=== PATIENT | female | born 1940 | race Caucasian/White ===

== ENCOUNTER → 2016-08-22 | Outpatient (CLI) | payer OTHER ==
[~2016-08-22] MED LIST: AUGMENTIN 875875 MG PO; DETROL LA4 MG PO; DOXYCYCLINE100 M2 PO; FLAGYL500 MG PO; LIALDA1.2 GM PO; LIPITOR40 MG PO; LISINOPRIL10 MG PO; LISINOPRIL5 MG PO; VITAMIN D1000 IU PO
== END | disposition home or self-care (01) ==
LOC: MAMMO 11:30
DX: Z12.31 Encounter for screening mammogram for malignant neoplasm of breast (principal)

== ENCOUNTER → 2017-07-27 | Outpatient (CLI) | payer OTHER | END | disposition home or self-care (01) | LOC: US 09:11 | DX: R10.31 Right lower quadrant pain (principal) ==

== ENCOUNTER → 2017-08-02 | Day surgery (SDC) | payer OTHER ==
[~2017-08-02] VITALS: Ht 149.8 cm; Wt 69.9 kg
[~2017-08-02] MED LIST changes: +MEDROL DOSEPAK4 MG PO
--- NOTE | ~2017-08-02 | O ---
[place], [place] OPERATIVE NOTE NAME: ROB FERREIRA UNIT #: [id number] ROOM: DOCTOR: MARS PRICE MD BIRTHDATE: [birth year] DOS: 08/02/2017 GASTROENDOSCOPIC REPORT INDICATIONS: This is a 77-year-old patient who presented with blood in stool on Lialda, history of ulcerative colitis history. ALLERGIES: SULFA. FAMILY HISTORY: Noncontributory. PAST SURGICAL HISTORY: Hysterectomy. PAST MEDICAL HISTORY: Hypertension, hypercholesterolemia, ulcerative colitis. SOCIAL HISTORY: Nonsmoker, nonalcohol consumer. PROCEDURE: Today's procedure part of investigation is colonoscopy plus biopsy. PREMEDICATION: Versed and Diprivan. SCOPE: Olympus folding colonoscope 10L video. REPORT: After putting the patient in left lateral position and application of lubricant to the scope, the scope was introduced. Thereafter, under direct visualization, I advanced the length of colon without difficulty. Evidence of ulcerative colitis limited to rectosigmoid and left side of the colon was appreciated, photographed, biopsied, and moderate to severe diverticulosis of the sigmoid colon identified. Base of the cecum explored, appendiceal was identified, ileocecal valve was defined. The patient extubated, tolerated the procedure well. IMPRESSION: Rectosigmoid and left-sided colitis, history of ulcerative colitis. The patient is on Lialda 1.2 grams b.i.d. She has been on Flagyl trial as well 500 mg twice a day. PLAN AND DISCUSSION: I am going to give her a trial of Medrol Dosepak, which is going to help her enhancing her healing. DIET: High fiber diet. ACTIVITY: Ad martha. FOLLOWUP: Routinely with you in office, p.r.n. visit with us in [facility]. [place], [place] OPERATIVE NOTE NAME: ROB FERREIRA UNIT #: [id number] ROOM: DOCTOR: MARS PRICE MD BIRTHDATE: [birth year] MARS PRICE MD CM:OPRECORD:OPERATIVE NOTE [id number] MANINDER PRICE MD 08/02/17 0832 interface
[2017-08-02 07:17] VITALS: BP 146/69
[2017-08-02 08:07] VITALS: BP 136/62
[2017-08-02 08:22] VITALS: BP 128/52
[2017-08-02 08:37] VITALS: BP 116/58
== END ==
LOC: SDC 07-27 14:45
DX: K52.89 Other specified noninfective gastroenteritis and colitis (principal); K62.89 Other specified diseases of anus and rectum; Z88.1 Allergy status to other antibiotic agents; Z90.710 Acquired absence of both cervix and uterus; I10 Essential (primary) hypertension; E78.00 Pure hypercholesterolemia, unspecified; F41.9 Anxiety disorder, unspecified; Z79.899 Other long term (current) drug therapy; Z98.890 Other specified postprocedural states

== ENCOUNTER → 2017-10-12 | Outpatient (CLI) | payer OTHER | END | disposition home or self-care (01) | LOC: MAMMO 08:09 | DX: Z12.31 Encounter for screening mammogram for malignant neoplasm of breast (principal) ==

== ENCOUNTER → 2017-10-25 | Outpatient (CLI) | payer OTHER ==
[~2017-10-25] MED LIST changes: +VITAMIN D-32000 UNIT PO; +VITAMIN E400 UNI1 PO
== END | disposition home or self-care (01) ==
LOC: ORTHO 02:19
DX: M19.031 Primary osteoarthritis, right wrist (principal)

== ENCOUNTER → 2017-11-17 | Outpatient (CLI) | payer OTHER ==
[2017-11-17 12:34] LABS: BUN 22 mg/dl (7-24); CHLORIDE 110 mmol/L (98-107); CREATININE 1.03 mg/dL (0.55-1.02); POTASSIUM 4.1 mmol/L (3.5-5.1); SODIUM 140 mmol/L (136-145)
[2017-11-17 12:46] LABS: BASO # 0.1 10*3/uL (0.0-0.1); BASO % 0.5 % (0.0-1.0); EOS # 0.2 10*3/uL (0.0-0.4); EOS % 1.9 % (1.0-4.0); HEMATOCRIT 44.4 % (37.0-47.0); HEMOGLOBIN 14.2 g/dl (12.0-16.0); LYMPH # 2.4 10*3/uL (1.3-4.4); LYMPH % 22.2 % (27.0-41.0); MEAN CELL VOLUME 90.8 fl (81.0-99.0); MEAN PLATELET VOLUME 11.9 fl (9.6-12.3); MONO # 0.7 10*3/uL (0.1-1.0); MONO % 6.4 % (3.0-9.0); NEUT # 7.5 10*3/uL (2.3-7.9); NEUT % 68.2 % (47.0-73.0); PLATELET COUNT AUTOMATED 196 10*3/uL (130-400); RED BLOOD COUNT 4.89 10*6/uL (4.10-5.10); RED CELL DISTRI WIDTH 12.4 % (0-14.5)
== END | disposition home or self-care (01) ==
LOC: LAB 10:02
PROVIDERS: Orthopaedic Surgery
DX: Z01.818 Encounter for other preprocedural examination (principal); G56.00 Carpal tunnel syndrome, unspecified upper limb; I10 Essential (primary) hypertension

== ENCOUNTER → 2017-11-23 | Day surgery (SDC) | payer OTHER ==
[~2017-11-23] VITALS: Ht 149.8 cm; Wt 69.9 kg
[2017-11-23 09:30] VITALS: BP 156/81
[2017-11-23 11:28] VITALS: BP 121/67
[2017-11-23 11:43] VITALS: BP 153/73
[2017-11-23 11:58] VITALS: BP 150/70
[2017-11-23 12:13] VITALS: BP 148/72
[2017-11-23 12:28] VITALS: BP 128/64
== END | disposition home or self-care (01) ==
LOC: SDC 11-16 11:00
DX: G56.01 Carpal tunnel syndrome, right upper limb (principal); I10 Essential (primary) hypertension; E78.00 Pure hypercholesterolemia, unspecified; F41.9 Anxiety disorder, unspecified; K50.90 Crohn's disease, unspecified, without complications; N28.89 Other specified disorders of kidney and ureter; K76.0 Fatty (change of) liver, not elsewhere classified; E66.09 Other obesity due to excess calories; Z98.890 Other specified postprocedural states; Z98.49 Cataract extraction status, unspecified eye; Z88.2 Allergy status to sulfonamides; Z88.8 Allergy status to other drugs, medicaments and biological substances; Z98.41 Cataract extraction status, right eye; Z98.42 Cataract extraction status, left eye; Z79.899 Other long term (current) drug therapy; Z80.9 Family history of malignant neoplasm, unspecified

== ENCOUNTER → 2018-10-09 | Outpatient (CLI) | payer OTHER ==
[2018-10-09 16:22] LABS: ALBUMIN 3.9 gm/dl (3.1-4.5); ALKALINE PHOSPHATASE 143 U/L (45-117); BUN 15 mg/dl (7-24); CHLORIDE 109 mmol/L (98-107); CREATININE 0.99 mg/dL (0.55-1.02); POTASSIUM 4.2 mmol/L (3.5-5.1); SGOT/AST 25 IU/L (3-35); SGPT/ALT 25 U/L (12-78); SODIUM 142 mmol/L (136-145); TOTAL PROTEIN 7.6 gm/dL (6.4-8.2)
[2018-10-09 16:23] LABS: FREE T4 1.17 ng/dl (0.76-1.46)
== END | disposition home or self-care (01) ==
LOC: LAB 14:21
PROVIDERS: Internal Medicine
DX: E78.5 Hyperlipidemia, unspecified (principal); I10 Essential (primary) hypertension; R42 Dizziness and giddiness

== ENCOUNTER → 2018-10-23 | Outpatient (CLI) | payer OTHER | END | disposition home or self-care (01) | LOC: CARD 09:38 | DX: R42 Dizziness and giddiness (principal) ==

== ENCOUNTER → 2018-11-21 | Outpatient (CLI) | payer OTHER | END | disposition home or self-care (01) | LOC: US 16:17 | DX: E04.2 Nontoxic multinodular goiter (principal) ==

== ENCOUNTER → 2020-03-18 | Outpatient (CLI) | payer OTHER | END | disposition home or self-care (01) | LOC: CARD 10:15 | PROVIDERS: ATTEND Internal Medicine Cardiovascular Disease | DX: Z01.810 Encounter for preprocedural cardiovascular examination (principal); I10 Essential (primary) hypertension ==

== ENCOUNTER 2020-04-02 12:02 | Emergency (ER) | payer OTHER ==
[~2020-04-02] VITALS: Wt 72.6 kg
[2020-04-02 12:34] LABS: BASO # 0.1 10*3/uL (0.0-0.1); BASO % 0.5 % (0.0-1.0); EOS # 0.2 10*3/uL (0.0-0.4); EOS % 1.6 % (1.0-4.0); HEMATOCRIT 44.4 % (37.0-47.0); LYMPH # 2.1 10*3/uL (1.3-4.4); LYMPH % 19.6 % (27.0-41.0); MEAN CELL VOLUME 88.4 fl (81.0-99.0); MEAN CORPUSCULAR HGB 28.1 pg (27.0-31.0); MEAN CORPUSCULAR HGB CONC 31.8 g/dl (33.0-37.0); MEAN PLATELET VOLUME 10.8 fl (9.6-12.3); MONO # 0.6 10*3/uL (0.1-1.0); MONO % 5.5 % (3.0-9.0); NEUT # 7.7 10*3/uL (2.3-7.9); NEUT % 72.2 % (47.0-73.0); PLATELET COUNT AUTOMATED 259 10*3/uL (130-400); RED BLOOD COUNT 5.02 10*6/uL (4.10-5.10); RED CELL DISTRI WIDTH 13.1 % (0-14.5); WHITE BLOOD COUNT 10.6 10*3/uL (4.8-10.8)
[2020-04-02 12:43] LABS: ACT PARTIAL THROMBO TIME 26.8 SECONDS (20.0-32.1); INTERNATIONAL NORM RATIO 0.9 (2.0-3.5)
[2020-04-02 12:49] LABS: ALBUMIN 3.3 gm/dl (3.1-4.5); ALKALINE PHOSPHATASE 134 U/L (45-117); BUN 11 mg/dl (7-24); CHLORIDE 108 mmol/L (98-107); CREATININE 0.93 mg/dL (0.55-1.02); SGOT/AST 15 IU/L (3-35); SGPT/ALT 15 U/L (12-78); SODIUM 142 mmol/L (136-145); TOTAL PROTEIN 7.5 gm/dL (6.4-8.2)
[2020-04-02 12:51] LABS: TROPONIN I < 0.015 ng/ml (<0.045)
[2020-04-02 14:57] VITALS: BP 173/101
[2020-04-02 18:19] LABS: BF LYMPHOCYTES 92 %; BF MACROPHAGES 7 %; BF NEUTROPHILS 1 %
[2020-04-02 18:26] LABS: BODY FLUID WBC 612 /uL
== END 2020-04-02 15:28 | disposition home or self-care (01) ==
LOC: ED 12:02
PROVIDERS: Emergency Medicine
DX: C80.1 Malignant (primary) neoplasm, unspecified (principal); J91.0 Malignant pleural effusion; Z88.2 Allergy status to sulfonamides; Z88.8 Allergy status to other drugs, medicaments and biological substances; Z79.899 Other long term (current) drug therapy

== ENCOUNTER → 2020-06-17 | Outpatient (CLI) | payer OTHER ==
[~2020-06-17] MED LIST changes: +Carafate1 GM PO; +FUROSEMIDE20 M1 PO; +KLOR-CON M1010 ME1 PO; +LEVOFLOXACIN250 M2 PO; +LOPRESSOR25 MG PO; +METRONIDAZOLE500 M1 PO; +MIRTAZAPINE30 M2 PO; +Nystatin 100,000 UNI PO; +PREDNISONE10 MG PO; +PROTONIX40 MG PO; +QUESTRAN LIGHT4 GM PO; +ZOFRAN 4 MG ED2 TAB PO
== END | disposition home or self-care (01) ==
LOC: RAD 14:26
PROVIDERS: ATTEND Internal Medicine
DX: J90 Pleural effusion, not elsewhere classified (principal)

== ENCOUNTER 2020-07-09 06:02 | Inpatient (IN) | payer OTHER ==
[~2020-07-09] VITALS: Ht 149.8 cm; Wt 65.9 kg
[~2020-07-09 06:02] MED LIST changes: -Carafate1 GM PO; -FUROSEMIDE20 M1 PO; -KLOR-CON M1010 ME1 PO; -LEVOFLOXACIN250 M2 PO; -LOPRESSOR25 MG PO; -METRONIDAZOLE500 M1 PO; -MIRTAZAPINE30 M2 PO; -Nystatin 100,000 UNI PO; -PREDNISONE10 MG PO; -PROTONIX40 MG PO; -QUESTRAN LIGHT4 GM PO; -ZOFRAN 4 MG ED2 TAB PO
[2020-07-09 06:10] VITALS: BP 125/64
[2020-07-09 06:36] LABS: BASO % 0.3 % (0.0-1.0); EOS % 0.1 % (1.0-4.0); HEMATOCRIT 45.9 % (37.0-47.0); LYMPH # 1.6 10*3/uL (1.3-4.4); LYMPH % 12.1 % (27.0-41.0); MEAN CELL VOLUME 87.8 fl (81.0-99.0); MEAN CORPUSCULAR HGB 27.7 pg (27.0-31.0); MEAN CORPUSCULAR HGB CONC 31.6 g/dl (33.0-37.0); MEAN PLATELET VOLUME 9.8 fl (9.6-12.3); MONO % 7.4 % (3.0-9.0); NEUT # 10.7 10*3/uL (2.3-7.9); NEUT % 78.6 % (47.0-73.0); PLATELET COUNT AUTOMATED 255 10*3/uL (130-400); RED BLOOD COUNT 5.23 10*6/uL (4.10-5.10); RED CELL DISTRI WIDTH 14.9 % (0-14.5); WHITE BLOOD COUNT 13.5 10*3/uL (4.8-10.8)
[2020-07-09 06:53] LABS: ALBUMIN 2.8 gm/dl (3.1-4.5); ALKALINE PHOSPHATASE 98 U/L (45-117); BUN 16 mg/dl (7-24); CHLORIDE 109 mmol/L (98-107); CREATININE 0.92 mg/dL (0.55-1.02); LIPASE 282 U/L (73-393); POTASSIUM 3.7 mmol/L (3.5-5.1); SGOT/AST 8 IU/L (3-35); SGPT/ALT 14 U/L (12-78); SODIUM 139 mmol/L (136-145); TOTAL PROTEIN 6.7 gm/dL (6.4-8.2)
[2020-07-09 07:25] LABS: ACT PARTIAL THROMBO TIME 24.7 SECONDS (20.0-32.1); INTERNATIONAL NORM RATIO 0.9 (2.0-3.5)
[2020-07-09 08:18] VITALS: BP 125/71
[2020-07-09 09:17] VITALS: BP 113/49
[2020-07-09 09:46] VITALS: BP 115/56
[2020-07-09 10:05] VITALS: BP 120/59
[2020-07-09 13:57] LABS: BILIRUBIN Negative (Negative); BLOOD Negative (Negative); CLARITY Turbid (Clear); COLOR Yellow (Yellow); GLUCOSE Negative (Negative); KETONE Negative (Negative); LEUKO ESTERASE 1+ (Negative); NITRITE Negative (Negative); UROBILINOGEN 0.2 E.U./dl (0.0-1.0)
[2020-07-09 14:16] LABS: BACTERIA 2+; EPITHELIAL CELLS 0-2; MUCOUS 1+; URIC ACID CRYSTALS 1+
[2020-07-09 20:00] VITALS: BP 119/71
[2020-07-10] VITALS: BP 103/45
[2020-07-10 07:05] LABS: BASO # 0.1 10*3/uL (0.0-0.1); BASO % 0.4 % (0.0-1.0); EOS % 0.1 % (1.0-4.0); HEMATOCRIT 44.4 % (37.0-47.0); LYMPH # 1.3 10*3/uL (1.3-4.4); LYMPH % 9.8 % (27.0-41.0); MEAN CORPUSCULAR HGB CONC 30.4 g/dl (33.0-37.0); MEAN PLATELET VOLUME 10.3 fl (9.6-12.3); MONO # 0.9 10*3/uL (0.1-1.0); MONO % 6.8 % (3.0-9.0); NEUT # 10.8 10*3/uL (2.3-7.9); NEUT % 81.8 % (47.0-73.0); PLATELET COUNT AUTOMATED 240 10*3/uL (130-400); RED BLOOD COUNT 4.82 10*6/uL (4.10-5.10); RED CELL DISTRI WIDTH 15.1 % (0-14.5); WHITE BLOOD COUNT 13.2 10*3/uL (4.8-10.8)
[2020-07-10 07:07] LABS: MEAN CELL VOLUME 92.1 fl (81.0-99.0)
[2020-07-10 07:31] LABS: ALBUMIN 2.4 gm/dl (3.1-4.5); CREATININE 1.12 mg/dL (0.55-1.02); POTASSIUM 3.7 mmol/L (3.5-5.1); TOTAL PROTEIN 6.1 gm/dL (6.4-8.2)
[2020-07-10 07:40] LABS: THYROID STIM HORMONE (HS) 1.63 uIU/ml (0.358-4.75)
[2020-07-10 08:00] VITALS: BP 118/58
[2020-07-10 12:00] VITALS: BP 130/54
[2020-07-10 16:00] VITALS: BP 125/52
[2020-07-10 20:00] VITALS: BP 102/53
[2020-07-11] VITALS: BP 119/50
[2020-07-11 06:21] LABS: BASO % 0.3 % (0.0-1.0); EOS % 0.1 % (1.0-4.0); HEMATOCRIT 42.4 % (37.0-47.0); LYMPH # 1.8 10*3/uL (1.3-4.4); LYMPH % 16.7 % (27.0-41.0); MEAN CELL VOLUME 90.8 fl (81.0-99.0); MEAN CORPUSCULAR HGB 27.8 pg (27.0-31.0); MEAN CORPUSCULAR HGB CONC 30.7 g/dl (33.0-37.0); MEAN PLATELET VOLUME 10.1 fl (9.6-12.3); MONO # 0.8 10*3/uL (0.1-1.0); MONO % 7.2 % (3.0-9.0); NEUT # 8.1 10*3/uL (2.3-7.9); PLATELET COUNT AUTOMATED 229 10*3/uL (130-400); RED BLOOD COUNT 4.67 10*6/uL (4.10-5.10); RED CELL DISTRI WIDTH 15.5 % (0-14.5); WHITE BLOOD COUNT 10.7 10*3/uL (4.8-10.8)
[2020-07-11 06:23] LABS: BUN 14 mg/dl (7-24); CHLORIDE 112 mmol/L (98-107); CREATININE 0.98 mg/dL (0.55-1.02); POTASSIUM 3.3 mmol/L (3.5-5.1); SODIUM 143 mmol/L (136-145)
[2020-07-11 12:00] VITALS: BP 121/78
[2020-07-11 16:00] VITALS: BP 122/48
[2020-07-11 20:00] VITALS: BP 124/56
[2020-07-12] VITALS (8 sets, daily range): BP systolic 96–136; BP diastolic 47–74
[2020-07-12 06:30] LABS: BUN 9 mg/dl (7-24); CHLORIDE 112 mmol/L (98-107); CREATININE 1.01 mg/dL (0.55-1.02); POTASSIUM 3.5 mmol/L (3.5-5.1); SODIUM 141 mmol/L (136-145)
[2020-07-13] VITALS: BP 98/41
[2020-07-13 08:00] VITALS: BP 112/62
[2020-07-13 12:00] VITALS: BP 128/56
[2020-07-13 16:00] VITALS: BP 116/66
[2020-07-13 20:00] VITALS: BP 107/55
[2020-07-14] VITALS: BP 113/54
[2020-07-14 08:00] VITALS: BP 108/58
[2020-07-14 08:26] LABS: HEMATOCRIT 39.3 % (37.0-47.0); MEAN CELL VOLUME 87.9 fl (81.0-99.0); MEAN CORPUSCULAR HGB CONC 31.8 g/dl (33.0-37.0); MEAN PLATELET VOLUME 10.3 fl (9.6-12.3); PLATELET COUNT AUTOMATED 231 10*3/uL (130-400); RED BLOOD COUNT 4.47 10*6/uL (4.10-5.10); WHITE BLOOD COUNT 17.5 10*3/uL (4.8-10.8)
[2020-07-14 08:48] LABS: BURR CELLS FEW; OVALOCYTES FEW; PLATELET SUFFICIENCY NORMAL (NORMAL); TOTAL CELLS COUNTED 100 #CELLS
[2020-07-14 12:00] VITALS: BP 108/52
[2020-07-14 16:00] VITALS: BP 135/54
[2020-07-14 20:03] VITALS: BP 125/55
[2020-07-15] VITALS: BP 137/68
[2020-07-15 06:21] LABS: HEMATOCRIT 36.6 % (37.0-47.0); MEAN CELL VOLUME 88.4 fl (81.0-99.0); MEAN CORPUSCULAR HGB CONC 31.7 g/dl (33.0-37.0); MEAN PLATELET VOLUME 10.5 fl (9.6-12.3); PLATELET COUNT AUTOMATED 238 10*3/uL (130-400); RED BLOOD COUNT 4.14 10*6/uL (4.10-5.10); RED CELL DISTRI WIDTH 15.2 % (0-14.5); WHITE BLOOD COUNT 16.4 10*3/uL (4.8-10.8)
[2020-07-15 06:36] LABS: ALBUMIN 2.2 gm/dl (3.1-4.5); CREATININE 1.14 mg/dL (0.55-1.02); POTASSIUM 3.1 mmol/L (3.5-5.1); TOTAL PROTEIN 5.7 gm/dL (6.4-8.2)
[2020-07-15 07:34] LABS: PLATELET SUFFICIENCY NORMAL (NORMAL); TOTAL CELLS COUNTED 100 #CELLS
[2020-07-15 08:00] VITALS: BP 134/60
[2020-07-15 12:00] VITALS: BP 134/56
[2020-07-15] MEDS ORDERED: Carafate1 GM PO (14:36)
[2020-07-15] MEDS ORDERED: PROTONIX40 MG PO (14:36)
[2020-07-15] MEDS ORDERED: LOPRESSOR25 MG PO (14:36)
[2020-07-15] MEDS ORDERED: ZOFRAN 4 MG ED2 TAB PO ×2 (14:36)
[2020-07-15] MEDS ORDERED: MEDROL DOSEPAK4 MG PO (14:37)
== END 2020-07-15 15:50 | disposition home or self-care (01) | DRG 871 ==
LOC: ED 06:02 → 5E 08:05 → EDHOLD 08:05 → 5E 08:34
PROVIDERS: Emergency Medicine; Internal Medicine; Internal Medicine Gastroenterology; Internal Medicine Nephrology; Student in an Organized Health Care Education/Training Program; ADMIT Internal Medicine; ATTEND Internal Medicine
PROC: 0DB68ZX Excision of Stomach, Via Natural or Artificial Opening Endoscopic, Diagnostic (ICD-10-PCS; principal; 2020-07-12)
PROC: 0DB98ZX Excision of Duodenum, Via Natural or Artificial Opening Endoscopic, Diagnostic (ICD-10-PCS; 2020-07-12)
PROC: 0DBE8ZX Excision of Large Intestine, Via Natural or Artificial Opening Endoscopic, Diagnostic (ICD-10-PCS; 2020-07-12)
DX: A41.9 Sepsis, unspecified organism (principal); K57.33 Diverticulitis of large intestine without perforation or abscess with bleeding; K29.71 Gastritis, unspecified, with bleeding; K26.4 Chronic or unspecified duodenal ulcer with hemorrhage; K29.81 Duodenitis with bleeding; K51.00 Ulcerative (chronic) pancolitis without complications; E44.0 Moderate protein-calorie malnutrition; I48.91 Unspecified atrial fibrillation; E87.8 Other disorders of electrolyte and fluid balance, not elsewhere classified; N39.3 Stress incontinence (female) (male); I10 Essential (primary) hypertension; R73.9 Hyperglycemia, unspecified; K44.9 Diaphragmatic hernia without obstruction or gangrene; D89.9 Disorder involving the immune mechanism, unspecified; C45.7 Mesothelioma of other sites; E87.6 Hypokalemia; Z88.1 Allergy status to other antibiotic agents; Z88.2 Allergy status to sulfonamides; Z83.79 Family history of other diseases of the digestive system; Z68.28 Body mass index [BMI] 28.0-28.9, adult; K52.9 Noninfective gastroenteritis and colitis, unspecified

== ENCOUNTER 2020-07-21 01:14 | Inpatient (IN) | payer OTHER ==
[2020-07-21] VITALS (9 sets, daily range): BP systolic 116–134; BP diastolic 50–88
[~2020-07-21] VITALS: Ht 149.8 cm; Wt 64.2 kg
[~2020-07-21 01:14] MED LIST changes: +Carafate1 GM PO; +LOPRESSOR25 MG PO; +PROTONIX40 MG PO; +ZOFRAN 4 MG ED2 TAB PO
[2020-07-21 01:44] LABS: BASO # 0.1 10*3/uL (0.0-0.1); BASO % 0.3 % (0.0-1.0); EOS % 0.1 % (1.0-4.0); HEMATOCRIT 44.5 % (37.0-47.0); LYMPH # 1.4 10*3/uL (1.3-4.4); LYMPH % 8.6 % (27.0-41.0); MEAN CELL VOLUME 85.9 fl (81.0-99.0); MEAN CORPUSCULAR HGB 27.6 pg (27.0-31.0); MEAN CORPUSCULAR HGB CONC 32.1 g/dl (33.0-37.0); MEAN PLATELET VOLUME 9.9 fl (9.6-12.3); MONO % 6.1 % (3.0-9.0); NEUT # 13.7 10*3/uL (2.3-7.9); NEUT % 83.6 % (47.0-73.0); PLATELET COUNT AUTOMATED 274 10*3/uL (130-400); RED BLOOD COUNT 5.18 10*6/uL (4.10-5.10); RED CELL DISTRI WIDTH 15.3 % (0-14.5); WHITE BLOOD COUNT 16.3 10*3/uL (4.8-10.8)
[2020-07-21 01:59] LABS: ALBUMIN 2.5 gm/dl (3.1-4.5); ALKALINE PHOSPHATASE 86 U/L (45-117); BUN 15 mg/dl (7-24); CHLORIDE 109 mmol/L (98-107); CREATININE 0.98 mg/dL (0.55-1.02); LIPASE 272 U/L (73-393); POTASSIUM 3.3 mmol/L (3.5-5.1); SGOT/AST 11 IU/L (3-35); SGPT/ALT 12 U/L (12-78); SODIUM 143 mmol/L (136-145)
[2020-07-21 10:52] LABS: BILIRUBIN Negative (Negative); BLOOD Negative (Negative); CLARITY Clear (Clear); COLOR Yellow (Yellow); GLUCOSE Negative (Negative); KETONE Negative (Negative); LEUKO ESTERASE Trace (Negative); NITRITE Negative (Negative); UROBILINOGEN 0.2 E.U./dl (0.0-1.0)
[2020-07-21 11:04] LABS: BACTERIA 1+
[2020-07-22] VITALS: BP 108/52
[2020-07-22 07:11] LABS: BASO % 0.3 % (0.0-1.0); HEMATOCRIT 38.5 % (37.0-47.0); LYMPH # 0.8 10*3/uL (1.3-4.4); LYMPH % 6.9 % (27.0-41.0); MEAN CELL VOLUME 88.9 fl (81.0-99.0); MEAN CORPUSCULAR HGB 28.2 pg (27.0-31.0); MEAN CORPUSCULAR HGB CONC 31.7 g/dl (33.0-37.0); MEAN PLATELET VOLUME 10.1 fl (9.6-12.3); MONO # 0.3 10*3/uL (0.1-1.0); MONO % 2.8 % (3.0-9.0); NEUT # 10.6 10*3/uL (2.3-7.9); NEUT % 89.1 % (47.0-73.0); PLATELET COUNT AUTOMATED 218 10*3/uL (130-400); RED BLOOD COUNT 4.33 10*6/uL (4.10-5.10); RED CELL DISTRI WIDTH 15.4 % (0-14.5); WHITE BLOOD COUNT 11.9 10*3/uL (4.8-10.8)
[2020-07-22 07:46] LABS: BUN 18 mg/dl (7-24); CHLORIDE 109 mmol/L (98-107); POTASSIUM 3.6 mmol/L (3.5-5.1); SODIUM 141 mmol/L (136-145)
[2020-07-22 07:49] LABS: ALKALINE PHOSPHATASE 74 U/L (45-117); CREATININE 0.97 mg/dL (0.55-1.02); SGOT/AST 11 IU/L (3-35); SGPT/ALT 13 U/L (12-78); TOTAL PROTEIN 5.5 gm/dL (6.4-8.2)
[2020-07-22 08:00] VITALS: BP 122/40
[2020-07-22 12:00] VITALS: BP 124/78
[2020-07-22 16:00] VITALS: BP 116/47
[2020-07-22 20:00] VITALS: BP 122/49
[2020-07-23] VITALS: BP 120/54
[2020-07-23 08:00] VITALS: BP 131/55
[2020-07-23 08:43] VITALS: BP 118/68
[2020-07-23 12:00] VITALS: BP 117/48
[2020-07-23 16:00] VITALS: BP 115/55
[2020-07-23 20:00] VITALS: BP 134/63
[2020-07-24] VITALS: BP 124/62
[2020-07-24 08:00] VITALS: BP 120/58; BP 130/72
[2020-07-24] MEDS ORDERED: PREDNISONE10 MG PO (11:30)
[2020-07-24] MEDS ORDERED: FLAGYL500 MG PO (11:30)
[2020-07-24 11:57] VITALS: BP 119/86
== END 2020-07-24 16:22 | disposition home or self-care (01) | DRG 871 ==
LOC: ED 01:14 → EDHOLD 09:27 → 5E 09:27 → EDHOLD 13:11 → 5E 13:45
PROVIDERS: Internal Medicine; ADMIT Internal Medicine; ATTEND Internal Medicine
PROC: 05H933Z Insertion of Infusion Device into Right Brachial Vein, Percutaneous Approach (ICD-10-PCS; principal; 2020-07-22)
PROC: B54MZZA Ultrasonography of Right Upper Extremity Veins, Guidance (ICD-10-PCS; 2020-07-22)
DX: A41.9 Sepsis, unspecified organism (principal); E43 Unspecified severe protein-calorie malnutrition; K51.00 Ulcerative (chronic) pancolitis without complications; K52.1 Toxic gastroenteritis and colitis; K57.32 Diverticulitis of large intestine without perforation or abscess without bleeding; C45.7 Mesothelioma of other sites; E86.0 Dehydration; N39.3 Stress incontinence (female) (male); D89.9 Disorder involving the immune mechanism, unspecified; I48.0 Paroxysmal atrial fibrillation; K26.9 Duodenal ulcer, unspecified as acute or chronic, without hemorrhage or perforation; Z20.822 Contact with and (suspected) exposure to COVID-19; T45.1X5A Adverse effect of antineoplastic and immunosuppressive drugs, initial encounter; Y92.89 Other specified places as the place of occurrence of the external cause; Z88.2 Allergy status to sulfonamides; Z88.1 Allergy status to other antibiotic agents; Z88.8 Allergy status to other drugs, medicaments and biological substances; Z79.899 Other long term (current) drug therapy

== ENCOUNTER 2020-07-26 13:54 | Inpatient (IN) | payer OTHER ==
[~2020-07-26] VITALS: Ht 149.8 cm; Wt 63.6 kg
[2020-07-26 00:30] VITALS: BP 120/61
[~2020-07-26 13:54] MED LIST changes: +PREDNISONE10 MG PO
[2020-07-26 13:59] VITALS: BP 132/66
[2020-07-26 14:51] LABS: BASO # 0.1 10*3/uL (0.0-0.1); BASO % 0.3 % (0.0-1.0); EOS % 0.1 % (1.0-4.0); HEMATOCRIT 44.8 % (37.0-47.0); LYMPH # 1.3 10*3/uL (1.3-4.4); LYMPH % 7.9 % (27.0-41.0); MEAN CELL VOLUME 87.2 fl (81.0-99.0); MEAN CORPUSCULAR HGB 27.6 pg (27.0-31.0); MEAN CORPUSCULAR HGB CONC 31.7 g/dl (33.0-37.0); MEAN PLATELET VOLUME 9.9 fl (9.6-12.3); MONO # 0.9 10*3/uL (0.1-1.0); MONO % 5.4 % (3.0-9.0); NEUT # 14.4 10*3/uL (2.3-7.9); NEUT % 85.4 % (47.0-73.0); PLATELET COUNT AUTOMATED 307 10*3/uL (130-400); RED BLOOD COUNT 5.14 10*6/uL (4.10-5.10); WHITE BLOOD COUNT 16.9 10*3/uL (4.8-10.8)
[2020-07-26 15:01] LABS: ACT PARTIAL THROMBO TIME 25.6 SECONDS (20.0-32.1)
[2020-07-26 15:18] LABS: ALKALINE PHOSPHATASE 76 U/L (45-117); BUN 6 mg/dl (7-24); CHLORIDE 107 mmol/L (98-107); CREATININE 0.76 mg/dL (0.55-1.02); LIPASE 141 U/L (73-393); POTASSIUM 2.6 mmol/L (3.5-5.1); SGOT/AST 8 IU/L (3-35); SGPT/ALT 14 U/L (12-78); SODIUM 139 mmol/L (136-145); TOTAL PROTEIN 5.6 gm/dL (6.4-8.2)
[2020-07-26 15:55] VITALS: BP 156/72
[2020-07-26 20:20] VITALS: BP 132/80
[2020-07-27 12:00] VITALS: BP 112/65
[2020-07-27 15:01] LABS: BUN 8 mg/dl (7-24); CHLORIDE 112 mmol/L (98-107); POTASSIUM 3.5 mmol/L (3.5-5.1); SODIUM 143 mmol/L (136-145)
[2020-07-27 16:00] VITALS: BP 116/56
[2020-07-27 16:37] LABS: HEMATOCRIT 40.6 % (37.0-47.0); MEAN CELL VOLUME 86.4 fl (81.0-99.0); MEAN CORPUSCULAR HGB 27.7 pg (27.0-31.0); MEAN PLATELET VOLUME 9.8 fl (9.6-12.3); PLATELET COUNT AUTOMATED 322 10*3/uL (130-400); RED CELL DISTRI WIDTH 15.5 % (0-14.5); WHITE BLOOD COUNT 11.4 10*3/uL (4.8-10.8)
[2020-07-27 16:59] LABS: BURR CELLS MODERATE; OVALOCYTES FEW; PLATELET SUFFICIENCY NORMAL (NORMAL); TOTAL CELLS COUNTED 100 #CELLS
[2020-07-27 20:00] VITALS: BP 128/55
[2020-07-28] VITALS: BP 103/55
[2020-07-28 06:06] LABS: BUN 11 mg/dl (7-24); CHLORIDE 115 mmol/L (98-107); CREATININE 0.72 mg/dL (0.55-1.02); POTASSIUM 3.5 mmol/L (3.5-5.1); SODIUM 143 mmol/L (136-145)
[2020-07-28 06:17] LABS: HEMATOCRIT 36.5 % (37.0-47.0); MEAN CELL VOLUME 88.8 fl (81.0-99.0); MEAN CORPUSCULAR HGB 27.7 pg (27.0-31.0); MEAN CORPUSCULAR HGB CONC 31.2 g/dl (33.0-37.0); MEAN PLATELET VOLUME 10.3 fl (9.6-12.3); PLATELET COUNT AUTOMATED 257 10*3/uL (130-400); RED BLOOD COUNT 4.11 10*6/uL (4.10-5.10); RED CELL DISTRI WIDTH 15.5 % (0-14.5); WHITE BLOOD COUNT 8.6 10*3/uL (4.8-10.8)
[2020-07-28 06:45] LABS: TOTAL CELLS COUNTED 100 #CELLS
[2020-07-28 06:46] LABS: BURR CELLS FEW; OVALOCYTES FEW; PLATELET SUFFICIENCY NORMAL (NORMAL)
[2020-07-28 06:50] LABS: TOXIC GRANULATION SLIGHT
[2020-07-28 12:00] VITALS: BP 119/57
[2020-07-28 16:00] VITALS: BP 120/56
[2020-07-28 20:00] VITALS: BP 127/63
[2020-07-29] VITALS: BP 135/72
[2020-07-29 07:02] LABS: ALBUMIN 1.9 gm/dl (3.1-4.5); ALKALINE PHOSPHATASE 67 U/L (45-117); BUN 15 mg/dl (7-24); CHLORIDE 120 mmol/L (98-107); CREATININE 0.84 mg/dL (0.55-1.02); POTASSIUM 3.5 mmol/L (3.5-5.1); SGOT/AST 6 IU/L (3-35); SGPT/ALT 9 U/L (12-78); SODIUM 149 mmol/L (136-145); TOTAL PROTEIN 4.9 gm/dL (6.4-8.2)
[2020-07-29 08:00] VITALS: BP 128/79
[2020-07-29 08:45] LABS: HEMATOCRIT 38.8 % (37.0-47.0); MEAN CELL VOLUME 88.6 fl (81.0-99.0); MEAN CORPUSCULAR HGB 27.6 pg (27.0-31.0); MEAN CORPUSCULAR HGB CONC 31.2 g/dl (33.0-37.0); MEAN PLATELET VOLUME 10.1 fl (9.6-12.3); RED BLOOD COUNT 4.38 10*6/uL (4.10-5.10); RED CELL DISTRI WIDTH 15.8 % (0-14.5)
[2020-07-29 08:46] LABS: PLATELET COUNT AUTOMATED 340 10*3/uL (130-400)
[2020-07-29 09:00] LABS: BURR CELLS FEW; PLATELET SUFFICIENCY NORMAL (NORMAL); TOTAL CELLS COUNTED 100 #CELLS; TOXIC GRANULATION SLIGHT
[2020-07-29 12:00] VITALS: BP 123/59
[2020-07-29 16:00] VITALS: BP 116/68
[2020-07-29 20:00] VITALS: BP 133/73
[2020-07-30] VITALS: BP 122/62
[2020-07-30 06:08] LABS: HEMATOCRIT 32.8 % (37.0-47.0); MEAN CELL VOLUME 88.4 fl (81.0-99.0); MEAN CORPUSCULAR HGB 28.3 pg (27.0-31.0); MEAN PLATELET VOLUME 9.9 fl (9.6-12.3); RED BLOOD COUNT 3.71 10*6/uL (4.10-5.10); RED CELL DISTRI WIDTH 15.8 % (0-14.5); WHITE BLOOD COUNT 14.2 10*3/uL (4.8-10.8)
[2020-07-30 06:09] LABS: PLATELET COUNT AUTOMATED 229 10*3/uL (130-400)
[2020-07-30 06:24] LABS: ALBUMIN 2.4 gm/dl (3.1-4.5); BUN 16 mg/dl (7-24); CHLORIDE 118 mmol/L (98-107); CREATININE 0.79 mg/dL (0.55-1.02); SGOT/AST 5 IU/L (3-35); SGPT/ALT 10 U/L (12-78); SODIUM 150 mmol/L (136-145)
[2020-07-30 06:26] LABS: ALKALINE PHOSPHATASE 62 U/L (45-117); TOTAL PROTEIN 4.9 gm/dL (6.4-8.2)
[2020-07-30 06:28] LABS: BURR CELLS FEW; OVALOCYTES FEW; PLATELET SUFFICIENCY NORMAL (NORMAL); TOTAL CELLS COUNTED 100 #CELLS; TOXIC GRANULATION SLIGHT
[2020-07-30 08:00] VITALS: BP 140/75
[2020-07-30 12:00] VITALS: BP 140/76
[2020-07-30 16:00] VITALS: BP 128/80
[2020-07-30 20:00] VITALS: BP 127/55
[2020-07-31] VITALS: BP 124/56
[2020-07-31 06:05] LABS: MEAN CELL VOLUME 85.6 fl (81.0-99.0); MEAN CORPUSCULAR HGB 27.9 pg (27.0-31.0); MEAN CORPUSCULAR HGB CONC 32.6 g/dl (33.0-37.0); PLATELET COUNT AUTOMATED 250 10*3/uL (130-400); RED BLOOD COUNT 4.09 10*6/uL (4.10-5.10); RED CELL DISTRI WIDTH 15.5 % (0-14.5); WHITE BLOOD COUNT 23.8 10*3/uL (4.8-10.8)
[2020-07-31 06:32] LABS: CHLORIDE 108 mmol/L (98-107); POTASSIUM 3.2 mmol/L (3.5-5.1); SODIUM 142 mmol/L (136-145)
[2020-07-31 06:43] LABS: ALBUMIN 2.4 gm/dl (3.1-4.5); ALKALINE PHOSPHATASE 72 U/L (45-117); BUN 14 mg/dl (7-24); CREATININE 0.86 mg/dL (0.55-1.02); SGOT/AST 6 IU/L (3-35); SGPT/ALT 11 U/L (12-78); TOTAL PROTEIN 5.2 gm/dL (6.4-8.2)
[2020-07-31 08:01] LABS: PLATELET SUFFICIENCY NORMAL (NORMAL); SCHISTOCYTES FEW; TOTAL CELLS COUNTED 100 #CELLS
[2020-07-31 12:00] VITALS: BP 106/69
[2020-07-31 16:00] VITALS: BP 151/76
[2020-07-31 20:00] VITALS: BP 149/60
[2020-08-01] VITALS: BP 134/57
[2020-08-01 03:28] LABS: BILIRUBIN Negative (Negative); BLOOD Negative (Negative); CLARITY Clear (Clear); COLOR Yellow (Yellow); GLUCOSE Negative (Negative); KETONE Negative (Negative); LEUKO ESTERASE Trace (Negative); NITRITE Negative (Negative); PH 5.5 (4.5-8.0); UROBILINOGEN 0.2 E.U./dl (0.0-1.0)
[2020-08-01 08:00] VITALS: BP 137/78
[2020-08-01 12:00] VITALS: BP 123/57
[2020-08-01] MEDS ORDERED: PREDNISONE10 MG PO ×2 (14:13)
[2020-08-01] MEDS ORDERED: FLAGYL500 MG PO ×2 (14:13)
[2020-08-01] MEDS ORDERED: LISINOPRIL5 MG PO ×2 (14:31)
== END 2020-08-01 15:59 | disposition home or self-care (01) | DRG 377 ==
LOC: ED 13:54 → 4E 17:55 → EDHOLD 17:55 → 4E 22:30
PROVIDERS: Emergency Medicine; Internal Medicine Nephrology; Student in an Organized Health Care Education/Training Program; ADMIT Internal Medicine; ATTEND Internal Medicine
DX: K26.4 Chronic or unspecified duodenal ulcer with hemorrhage (principal); E43 Unspecified severe protein-calorie malnutrition; K50.90 Crohn's disease, unspecified, without complications; I48.20 Chronic atrial fibrillation, unspecified; E87.0 Hyperosmolality and hypernatremia; K52.9 Noninfective gastroenteritis and colitis, unspecified; K57.91 Diverticulosis of intestine, part unspecified, without perforation or abscess with bleeding; E87.6 Hypokalemia; C45.7 Mesothelioma of other sites; N39.3 Stress incontinence (female) (male); D89.9 Disorder involving the immune mechanism, unspecified; I10 Essential (primary) hypertension; E86.0 Dehydration; Z88.1 Allergy status to other antibiotic agents; Z88.2 Allergy status to sulfonamides; Z98.49 Cataract extraction status, unspecified eye; Z90.710 Acquired absence of both cervix and uterus; Z98.890 Other specified postprocedural states; Z68.28 Body mass index [BMI] 28.0-28.9, adult

== ENCOUNTER 2020-08-10 09:04 | Inpatient (IN) | payer OTHER ==
[~2020-08-10] VITALS: Ht 149.8 cm; Wt 65.3 kg
[2020-08-10 09:09] VITALS: BP 111/69
[2020-08-10 10:07] LABS: HEMATOCRIT 39.4 % (37.0-47.0); MEAN CORPUSCULAR HGB 27.9 pg (27.0-31.0); MEAN PLATELET VOLUME 10.1 fl (9.6-12.3); PLATELET COUNT AUTOMATED 224 10*3/uL (130-400); RED BLOOD COUNT 4.38 10*6/uL (4.10-5.10); WHITE BLOOD COUNT 15.1 10*3/uL (4.8-10.8)
[2020-08-10 10:19] LABS: ACT PARTIAL THROMBO TIME 22.8 SECONDS (20.0-32.1)
[2020-08-10 10:27] LABS: ALBUMIN 2.1 gm/dl (3.1-4.5); ALKALINE PHOSPHATASE 150 U/L (45-117); BUN 16 mg/dl (7-24); CHLORIDE 101 mmol/L (98-107); CREATININE 0.78 mg/dL (0.55-1.02); LIPASE 116 U/L (73-393); POTASSIUM 3.1 mmol/L (3.5-5.1); SGOT/AST 13 IU/L (3-35); SGPT/ALT 14 U/L (12-78); SODIUM 140 mmol/L (136-145); TOTAL PROTEIN 5.3 gm/dL (6.4-8.2)
[2020-08-10 10:36] LABS: TROPONIN I < 0.015 ng/ml (<0.045)
[2020-08-10 10:40] LABS: PLATELET SUFFICIENCY NORMAL (NORMAL); TOTAL CELLS COUNTED 100 #CELLS
[2020-08-10 10:41] LABS: OVALOCYTES FEW; POLYCHROMASIA SLIGHT
[2020-08-10 11:32] VITALS: BP 134/79
[2020-08-10 13:00] VITALS: BP 114/53
[2020-08-10 15:53] LABS: BILIRUBIN Negative (Negative); BLOOD Negative (Negative); CLARITY Clear (Clear); COLOR Yellow (Yellow); GLUCOSE Negative (Negative); KETONE 1+ (Negative); LEUKO ESTERASE 1+ (Negative); NITRITE Negative (Negative); PH 6.5 (4.5-8.0); UROBILINOGEN 0.2 E.U./dl (0.0-1.0)
[2020-08-10 16:00] VITALS: BP 120/79
[2020-08-10 16:02] LABS: RBC 0-2 rbc/hpf (0-2)
[2020-08-10 16:03] LABS: BACTERIA TRACE
[2020-08-10 20:00] VITALS: BP 119/78
[2020-08-11] VITALS: BP 112/55
[2020-08-11 06:04] LABS: ALKALINE PHOSPHATASE 142 U/L (45-117); BUN 16 mg/dl (7-24); CHLORIDE 106 mmol/L (98-107); CREATININE 0.78 mg/dL (0.55-1.02); SGOT/AST 13 IU/L (3-35); SGPT/ALT 12 U/L (12-78); SODIUM 142 mmol/L (136-145); TOTAL PROTEIN 5.2 gm/dL (6.4-8.2)
[2020-08-11 06:35] LABS: HEMATOCRIT 33.9 % (37.0-47.0); MEAN CORPUSCULAR HGB 27.8 pg (27.0-31.0); MEAN CORPUSCULAR HGB CONC 32.4 g/dl (33.0-37.0); MEAN PLATELET VOLUME 10.3 fl (9.6-12.3); PLATELET COUNT AUTOMATED 187 10*3/uL (130-400); RED BLOOD COUNT 3.96 10*6/uL (4.10-5.10); RED CELL DISTRI WIDTH 15.7 % (0-14.5); WHITE BLOOD COUNT 10.8 10*3/uL (4.8-10.8)
[2020-08-11 06:39] LABS: MEAN CELL VOLUME 85.6 fl (81.0-99.0)
[2020-08-11 07:04] LABS: PLATELET SUFFICIENCY NORMAL (NORMAL); POLYCHROMASIA SLIGHT; TOTAL CELLS COUNTED 100 #CELLS
[2020-08-11 08:00] VITALS: BP 134/64
[2020-08-11 12:00] VITALS: BP 127/71
[2020-08-11 16:00] VITALS: BP 137/68
[2020-08-11 20:00] VITALS: BP 150/74
[2020-08-12] VITALS: BP 131/63
[2020-08-12 07:40] VITALS: BP 140/60
[2020-08-12 11:50] VITALS: BP 120/50
[2020-08-12 16:00] VITALS: BP 137/77
[2020-08-12 20:00] VITALS: BP 129/58
[2020-08-12 23:41] VITALS: BP 127/54
[2020-08-13 08:00] VITALS: BP 138/80
[2020-08-13 12:00] VITALS: BP 142/70
[2020-08-13 16:00] VITALS: BP 139/52
[2020-08-13 20:00] VITALS: BP 143/67
[2020-08-14] VITALS: BP 141/65
[2020-08-14 06:30] LABS: HEMATOCRIT 39.1 % (37.0-47.0); MEAN CELL VOLUME 88.9 fl (81.0-99.0); MEAN CORPUSCULAR HGB 27.7 pg (27.0-31.0); MEAN CORPUSCULAR HGB CONC 31.2 g/dl (33.0-37.0); MEAN PLATELET VOLUME 10.2 fl (9.6-12.3); PLATELET COUNT AUTOMATED 212 10*3/uL (130-400); RED CELL DISTRI WIDTH 16.2 % (0-14.5); WHITE BLOOD COUNT 16.9 10*3/uL (4.8-10.8)
[2020-08-14 06:48] LABS: PLATELET SUFFICIENCY NORMAL (NORMAL); TOTAL CELLS COUNTED 100 #CELLS
[2020-08-14 07:00] LABS: ALBUMIN 2.4 gm/dl (3.1-4.5); ALKALINE PHOSPHATASE 209 U/L (45-117); BUN 15 mg/dl (7-24); CHLORIDE 108 mmol/L (98-107); CREATININE 0.72 mg/dL (0.55-1.02); POTASSIUM 3.3 mmol/L (3.5-5.1); SGOT/AST 14 IU/L (3-35); SGPT/ALT 15 U/L (12-78); SODIUM 148 mmol/L (136-145); TOTAL PROTEIN 5.3 gm/dL (6.4-8.2)
[2020-08-14 08:00] VITALS: BP 137/76
[2020-08-14 12:00] VITALS: BP 132/70
[2020-08-14 16:00] VITALS: BP 137/72
[2020-08-14 20:00] VITALS: BP 116/61
[2020-08-15] VITALS: BP 134/62
[2020-08-15 08:50] LABS: BUN 11 mg/dl (7-24); CHLORIDE 107 mmol/L (98-107); CREATININE 0.73 mg/dL (0.55-1.02); POTASSIUM 3.4 mmol/L (3.5-5.1); SODIUM 142 mmol/L (136-145)
[2020-08-15 09:41] LABS: BASO # 0.1 10*3/uL (0.0-0.1); BASO % 0.4 % (0.0-1.0); EOS % 0.1 % (1.0-4.0); LYMPH # 1.2 10*3/uL (1.3-4.4); LYMPH % 7.9 % (27.0-41.0); MEAN CELL VOLUME 87.1 fl (81.0-99.0); MEAN CORPUSCULAR HGB CONC 32.2 g/dl (33.0-37.0); MEAN PLATELET VOLUME 10.2 fl (9.6-12.3); MONO # 0.7 10*3/uL (0.1-1.0); MONO % 4.3 % (3.0-9.0); NEUT # 13.5 10*3/uL (2.3-7.9); NEUT % 85.8 % (47.0-73.0); PLATELET COUNT AUTOMATED 159 10*3/uL (130-400); RED BLOOD COUNT 4.25 10*6/uL (4.10-5.10); RED CELL DISTRI WIDTH 16.4 % (0-14.5); WHITE BLOOD COUNT 15.7 10*3/uL (4.8-10.8)
[2020-08-15 12:00] VITALS: BP 147/69
[2020-08-15 16:00] VITALS: BP 112/66
[2020-08-15 20:00] VITALS: BP 129/58
[2020-08-16] VITALS: BP 119/74
[2020-08-16] MEDS ORDERED: LEVOFLOXACIN250 M2 PO (06:26)
[2020-08-16] MEDS ORDERED: KLOR-CON M1010 ME1 PO (06:26)
[2020-08-16] MEDS ORDERED: Nystatin 100,000 UNI PO (06:26)
[2020-08-16] MEDS ORDERED: FUROSEMIDE20 M1 PO ×2 (06:26→06:44)
[2020-08-16] MEDS ORDERED: QUESTRAN LIGHT4 GM PO (06:26)
[2020-08-16] MEDS ORDERED: MIRTAZAPINE30 M2 PO (06:26)
[2020-08-16 08:00] VITALS: BP 127/74
[2020-08-16 08:19] LABS: BASO % 0.2 % (0.0-1.0); EOS % 0.2 % (1.0-4.0); HEMATOCRIT 34.8 % (37.0-47.0); LYMPH # 1.2 10*3/uL (1.3-4.4); LYMPH % 10.3 % (27.0-41.0); MEAN CELL VOLUME 88.3 fl (81.0-99.0); MEAN CORPUSCULAR HGB 27.4 pg (27.0-31.0); MEAN PLATELET VOLUME 10.6 fl (9.6-12.3); MONO # 0.5 10*3/uL (0.1-1.0); MONO % 4.8 % (3.0-9.0); NEUT # 9.4 10*3/uL (2.3-7.9); NEUT % 82.9 % (47.0-73.0); PLATELET COUNT AUTOMATED 159 10*3/uL (130-400); RED BLOOD COUNT 3.94 10*6/uL (4.10-5.10); RED CELL DISTRI WIDTH 16.6 % (0-14.5); WHITE BLOOD COUNT 11.3 10*3/uL (4.8-10.8)
== END 2020-08-16 10:36 | disposition home health service (06) | DRG 392 ==
LOC: ED 09:04 → 5E 11:39 → EDHOLD 11:39 → 5E 12:21
PROVIDERS: Emergency Medicine; ADMIT Internal Medicine; ATTEND Internal Medicine
DX: K52.9 Noninfective gastroenteritis and colitis, unspecified (principal); F32.0 Major depressive disorder, single episode, mild; I48.19 Other persistent atrial fibrillation; E44.0 Moderate protein-calorie malnutrition; E86.0 Dehydration; I10 Essential (primary) hypertension; I48.0 Paroxysmal atrial fibrillation; C45.9 Mesothelioma, unspecified; E87.6 Hypokalemia; R07.89 Other chest pain; F43.23 Adjustment disorder with mixed anxiety and depressed mood; Z20.822 Contact with and (suspected) exposure to COVID-19; B96.5 Pseudomonas (aeruginosa) (mallei) (pseudomallei) as the cause of diseases classified elsewhere; D72.829 Elevated white blood cell count, unspecified; T38.0X5A Adverse effect of glucocorticoids and synthetic analogues, initial encounter; Y92.238 Other place in hospital as the place of occurrence of the external cause; R11.0 Nausea; T37.3X5A Adverse effect of other antiprotozoal drugs, initial encounter; Z92.21 Personal history of antineoplastic chemotherapy; Z79.01 Long term (current) use of anticoagulants; Z88.2 Allergy status to sulfonamides; Z88.1 Allergy status to other antibiotic agents; Z91.048 Other nonmedicinal substance allergy status; Z98.49 Cataract extraction status, unspecified eye; Z90.710 Acquired absence of both cervix and uterus; Z83.79 Family history of other diseases of the digestive system; Z92.3 Personal history of irradiation; Z68.29 Body mass index [BMI] 29.0-29.9, adult

== ENCOUNTER 2020-08-18 16:19 | Inpatient (IN) | payer OTHER ==
[~2020-08-18] VITALS: Ht 149.9 cm
[2020-08-18] VITALS (9 sets, daily range): BP systolic 82–121; BP diastolic 42–67
[~2020-08-18 16:19] MED LIST changes: +FUROSEMIDE20 M1 PO; +KLOR-CON M1010 ME1 PO; +LEVOFLOXACIN250 M2 PO; +MIRTAZAPINE30 M2 PO; +Nystatin 100,000 UNI PO; +QUESTRAN LIGHT4 GM PO
[2020-08-18 17:09] LABS: BASO # 0.1 10*3/uL (0.0-0.1); BASO % 0.4 % (0.0-1.0); EOS % 0.2 % (1.0-4.0); HEMATOCRIT 40.1 % (37.0-47.0); LYMPH # 1.2 10*3/uL (1.3-4.4); LYMPH % 9.3 % (27.0-41.0); MEAN CELL VOLUME 88.9 fl (81.0-99.0); MEAN CORPUSCULAR HGB 27.5 pg (27.0-31.0); MEAN CORPUSCULAR HGB CONC 30.9 g/dl (33.0-37.0); MONO # 0.7 10*3/uL (0.1-1.0); MONO % 5.5 % (3.0-9.0); NEUT % 82.9 % (47.0-73.0); PLATELET COUNT AUTOMATED 261 10*3/uL (130-400); RED BLOOD COUNT 4.51 10*6/uL (4.10-5.10); RED CELL DISTRI WIDTH 16.7 % (0-14.5); WHITE BLOOD COUNT 13.3 10*3/uL (4.8-10.8)
[2020-08-18 17:20] LABS: ACT PARTIAL THROMBO TIME 22.5 SECONDS (20.0-32.1); INTERNATIONAL NORM RATIO 1.1 (2.0-3.5)
[2020-08-18 17:24] LABS: ALBUMIN 2.1 gm/dl (3.1-4.5); ALKALINE PHOSPHATASE 170 U/L (45-117); BUN 9 mg/dl (7-24); CHLORIDE 100 mmol/L (98-107); CREATININE 0.85 mg/dL (0.55-1.02); LIPASE 87 U/L (73-393); POTASSIUM 3.8 mmol/L (3.5-5.1); SGOT/AST 22 IU/L (3-35); SGPT/ALT 16 U/L (12-78); SODIUM 138 mmol/L (136-145); TOTAL PROTEIN 5.9 gm/dL (6.4-8.2); TROPONIN I < 0.015 ng/ml (<0.045)
[2020-08-19] VITALS (10 sets, daily range): BP systolic 98–137; BP diastolic 49–91
[2020-08-19 06:21] LABS: HEMATOCRIT 29.7 % (37.0-47.0); MEAN CELL VOLUME 90.5 fl (81.0-99.0); MEAN CORPUSCULAR HGB 27.7 pg (27.0-31.0); MEAN CORPUSCULAR HGB CONC 30.6 g/dl (33.0-37.0); MEAN PLATELET VOLUME 10.3 fl (9.6-12.3); PLATELET COUNT AUTOMATED 206 10*3/uL (130-400); RED BLOOD COUNT 3.28 10*6/uL (4.10-5.10); RED CELL DISTRI WIDTH 16.8 % (0-14.5); WHITE BLOOD COUNT 9.8 10*3/uL (4.8-10.8)
[2020-08-19 06:41] LABS: ALBUMIN 1.6 gm/dl (3.1-4.5); ALKALINE PHOSPHATASE 121 U/L (45-117); BUN 10 mg/dl (7-24); CHLORIDE 102 mmol/L (98-107); CHOLESTEROL 69 mg/dL (<200); HDL CHOLESTEROL 26 mg/dl (40-60); LDL CHOLESTEROL 24 mg/dL (9-159); POTASSIUM 3.2 mmol/L (3.5-5.1); SGOT/AST 17 IU/L (3-35); SGPT/ALT 11 U/L (12-78); SODIUM 140 mmol/L (136-145); TOTAL PROTEIN 4.4 gm/dL (6.4-8.2); TRIGLYCERIDES 93 mg/dl (<150); VLDL CHOLESTEROL 19 mg/dL (6-40)
[2020-08-19 06:47] LABS: CREATININE 0.69 mg/dL (0.55-1.02)
[2020-08-19 06:50] LABS: BURR CELLS FEW; PLATELET SUFFICIENCY NORMAL (NORMAL); POLYCHROMASIA SLIGHT; TOTAL CELLS COUNTED 100 #CELLS
[2020-08-19 06:51] LABS: ROULEAUX SLIGHT
[2020-08-20] VITALS: BP 110/58
[2020-08-20 06:37] LABS: BASO % 0.2 % (0.0-1.0); EOS % 0.5 % (1.0-4.0); LYMPH # 0.7 10*3/uL (1.3-4.4); MEAN CELL VOLUME 90.6 fl (81.0-99.0); MEAN CORPUSCULAR HGB 27.9 pg (27.0-31.0); MEAN CORPUSCULAR HGB CONC 30.8 g/dl (33.0-37.0); MEAN PLATELET VOLUME 9.9 fl (9.6-12.3); MONO # 0.4 10*3/uL (0.1-1.0); MONO % 6.8 % (3.0-9.0); NEUT # 4.8 10*3/uL (2.3-7.9); NEUT % 78.1 % (47.0-73.0); PLATELET COUNT AUTOMATED 174 10*3/uL (130-400); RED BLOOD COUNT 2.76 10*6/uL (4.10-5.10); RED CELL DISTRI WIDTH 17.2 % (0-14.5); WHITE BLOOD COUNT 6.2 10*3/uL (4.8-10.8)
[2020-08-20 06:51] LABS: BUN 7 mg/dl (7-24); CHLORIDE 108 mmol/L (98-107); CREATININE 0.74 mg/dL (0.55-1.02); POTASSIUM 3.4 mmol/L (3.5-5.1); SODIUM 144 mmol/L (136-145)
[2020-08-20 08:00] VITALS: BP 113/59
[2020-08-20 12:00] VITALS: BP 136/60
[2020-08-20 14:00] VITALS: BP 139/60
[2020-08-20 14:50] LABS: BASO % 0.3 % (0.0-1.0); EOS % 0.4 % (1.0-4.0); HEMATOCRIT 26.2 % (37.0-47.0); LYMPH # 0.6 10*3/uL (1.3-4.4); LYMPH % 8.5 % (27.0-41.0); MEAN CORPUSCULAR HGB 27.8 pg (27.0-31.0); MEAN CORPUSCULAR HGB CONC 30.5 g/dl (33.0-37.0); MEAN PLATELET VOLUME 9.2 fl (9.6-12.3); MONO # 0.4 10*3/uL (0.1-1.0); MONO % 5.6 % (3.0-9.0); NEUT # 5.6 10*3/uL (2.3-7.9); NEUT % 82.8 % (47.0-73.0); PLATELET COUNT AUTOMATED 176 10*3/uL (130-400); RED BLOOD COUNT 2.88 10*6/uL (4.10-5.10); RED CELL DISTRI WIDTH 17.2 % (0-14.5); WHITE BLOOD COUNT 6.8 10*3/uL (4.8-10.8)
[2020-08-20 20:00] VITALS: BP 114/56
[2020-08-21] VITALS (16 sets, daily range): BP systolic 95–136; BP diastolic 7–80
[2020-08-21 06:43] LABS: HEMATOCRIT 26.1 % (37.0-47.0); MEAN CELL VOLUME 90.9 fl (81.0-99.0); MEAN CORPUSCULAR HGB 27.9 pg (27.0-31.0); MEAN CORPUSCULAR HGB CONC 30.7 g/dl (33.0-37.0); MEAN PLATELET VOLUME 9.6 fl (9.6-12.3); PLATELET COUNT AUTOMATED 172 10*3/uL (130-400); RED BLOOD COUNT 2.87 10*6/uL (4.10-5.10); WHITE BLOOD COUNT 5.6 10*3/uL (4.8-10.8)
[2020-08-21 07:05] LABS: ALBUMIN 2.9 gm/dl (3.1-4.5); ALKALINE PHOSPHATASE 87 U/L (45-117); BUN 5 mg/dl (7-24); CHLORIDE 112 mmol/L (98-107); CREATININE 0.67 mg/dL (0.55-1.02); POTASSIUM 3.6 mmol/L (3.5-5.1); SGOT/AST 9 IU/L (3-35); SGPT/ALT 11 U/L (12-78); SODIUM 144 mmol/L (136-145)
[2020-08-21 07:49] LABS: ACANTHOCYTES FEW; PLATELET SUFFICIENCY NORMAL (NORMAL); TOTAL CELLS COUNTED 100 #CELLS
[2020-08-21 20:57] LABS: HEMATOCRIT 31.5 % (37.0-47.0); MEAN CELL VOLUME 90.5 fl (81.0-99.0); MEAN CORPUSCULAR HGB 28.4 pg (27.0-31.0); MEAN CORPUSCULAR HGB CONC 31.4 g/dl (33.0-37.0); MEAN PLATELET VOLUME 10.1 fl (9.6-12.3); PLATELET COUNT AUTOMATED 185 10*3/uL (130-400); RED BLOOD COUNT 3.48 10*6/uL (4.10-5.10); RED CELL DISTRI WIDTH 15.9 % (0-14.5); WHITE BLOOD COUNT 6.3 10*3/uL (4.8-10.8)
[2020-08-21 21:33] LABS: BURR CELLS FEW; PLATELET SUFFICIENCY NORMAL (NORMAL); TOTAL CELLS COUNTED 100 #CELLS
[2020-08-22] VITALS: BP 106/49
[2020-08-22 06:03] LABS: ALBUMIN 3.4 gm/dl (3.1-4.5); ALKALINE PHOSPHATASE 104 U/L (45-117); BUN 10 mg/dl (7-24); CHLORIDE 111 mmol/L (98-107); CREATININE 0.73 mg/dL (0.55-1.02); POTASSIUM 3.8 mmol/L (3.5-5.1); SGOT/AST 7 IU/L (3-35); SGPT/ALT 10 U/L (12-78); SODIUM 144 mmol/L (136-145); TOTAL PROTEIN 5.4 gm/dL (6.4-8.2)
[2020-08-22 06:14] LABS: MEAN CELL VOLUME 91.5 fl (81.0-99.0); MEAN CORPUSCULAR HGB 28.4 pg (27.0-31.0); MEAN PLATELET VOLUME 10.5 fl (9.6-12.3); PLATELET COUNT AUTOMATED 184 10*3/uL (130-400); RED BLOOD COUNT 3.28 10*6/uL (4.10-5.10); WHITE BLOOD COUNT 5.8 10*3/uL (4.8-10.8)
[2020-08-22 07:03] LABS: TOTAL CELLS COUNTED 100 #CELLS
[2020-08-22 07:04] LABS: BURR CELLS FEW; OVALOCYTES FEW; PLATELET SUFFICIENCY NORMAL (NORMAL); POLYCHROMASIA SLIGHT
[2020-08-22 08:00] VITALS: BP 137/70
[2020-08-22 12:00] VITALS: BP 123/64
[2020-08-22 16:00] VITALS: BP 132/98
[2020-08-22 20:00] VITALS: BP 141/78
[2020-08-22 22:57] LABS: HEMATOCRIT 33.2 % (37.0-47.0); MEAN CORPUSCULAR HGB 27.9 pg (27.0-31.0); MEAN CORPUSCULAR HGB CONC 30.7 g/dl (33.0-37.0); MEAN PLATELET VOLUME 10.1 fl (9.6-12.3); PLATELET COUNT AUTOMATED 227 10*3/uL (130-400); RED BLOOD COUNT 3.65 10*6/uL (4.10-5.10); RED CELL DISTRI WIDTH 16.1 % (0-14.5); WHITE BLOOD COUNT 9.7 10*3/uL (4.8-10.8)
[2020-08-22 23:17] LABS: PLATELET SUFFICIENCY NORMAL (NORMAL); TOTAL CELLS COUNTED 100 #CELLS
[2020-08-23] VITALS (7 sets, daily range): BP systolic 115–144; BP diastolic 53–81
[2020-08-23 06:30] LABS: HEMATOCRIT 32.2 % (37.0-47.0); MEAN CORPUSCULAR HGB 28.3 pg (27.0-31.0); MEAN CORPUSCULAR HGB CONC 30.7 g/dl (33.0-37.0); MEAN PLATELET VOLUME 10.3 fl (9.6-12.3); PLATELET COUNT AUTOMATED 231 10*3/uL (130-400); RED CELL DISTRI WIDTH 16.4 % (0-14.5); WHITE BLOOD COUNT 8.2 10*3/uL (4.8-10.8)
[2020-08-23 07:00] LABS: BURR CELLS FEW; PLATELET SUFFICIENCY NORMAL (NORMAL); TOTAL CELLS COUNTED 100 #CELLS; TOXIC GRANULATION SLIGHT
[2020-08-23 07:01] LABS: POLYCHROMASIA SLIGHT
[2020-08-23 10:24] LABS: MEAN CELL VOLUME 91.9 fl (81.0-99.0); MEAN CORPUSCULAR HGB 28.1 pg (27.0-31.0); MEAN CORPUSCULAR HGB CONC 30.6 g/dl (33.0-37.0); PLATELET COUNT AUTOMATED 256 10*3/uL (130-400); RED BLOOD COUNT 3.59 10*6/uL (4.10-5.10); RED CELL DISTRI WIDTH 16.5 % (0-14.5); WHITE BLOOD COUNT 10.5 10*3/uL (4.8-10.8)
[2020-08-23 10:45] LABS: BURR CELLS FEW; OVALOCYTES FEW; TOTAL CELLS COUNTED 100 #CELLS
[2020-08-23 10:46] LABS: PLATELET SUFFICIENCY NORMAL (NORMAL)
[2020-08-23 10:47] LABS: POLYCHROMASIA SLIGHT; TOXIC GRANULATION SLIGHT
[2020-08-23 17:02] LABS: HEMATOCRIT 29.5 % (37.0-47.0); MEAN CELL VOLUME 91.9 fl (81.0-99.0); MEAN CORPUSCULAR HGB 28.3 pg (27.0-31.0); MEAN CORPUSCULAR HGB CONC 30.8 g/dl (33.0-37.0); PLATELET COUNT AUTOMATED 264 10*3/uL (130-400); RED BLOOD COUNT 3.21 10*6/uL (4.10-5.10); RED CELL DISTRI WIDTH 16.7 % (0-14.5); WHITE BLOOD COUNT 10.7 10*3/uL (4.8-10.8)
[2020-08-23 17:25] LABS: BURR CELLS FEW; OVALOCYTES FEW; PLATELET SUFFICIENCY NORMAL (NORMAL); TOTAL CELLS COUNTED 100 #CELLS
[2020-08-23 21:57] LABS: HEMATOCRIT 28.2 % (37.0-47.0); MEAN CELL VOLUME 92.5 fl (81.0-99.0); MEAN CORPUSCULAR HGB 28.2 pg (27.0-31.0); MEAN CORPUSCULAR HGB CONC 30.5 g/dl (33.0-37.0); MEAN PLATELET VOLUME 10.2 fl (9.6-12.3); PLATELET COUNT AUTOMATED 234 10*3/uL (130-400); RED BLOOD COUNT 3.05 10*6/uL (4.10-5.10); RED CELL DISTRI WIDTH 16.9 % (0-14.5); WHITE BLOOD COUNT 8.2 10*3/uL (4.8-10.8)
[2020-08-23 22:18] LABS: PLATELET SUFFICIENCY NORMAL (NORMAL); TOTAL CELLS COUNTED 100 #CELLS
[2020-08-23 22:20] LABS: MICROCYTOSIS SLIGHT
[2020-08-24] VITALS (11 sets, daily range): BP systolic 114–160; BP diastolic 57–107
[2020-08-24 06:40] LABS: HEMATOCRIT 31.8 % (37.0-47.0); MEAN CELL VOLUME 91.9 fl (81.0-99.0); MEAN CORPUSCULAR HGB 29.2 pg (27.0-31.0); MEAN CORPUSCULAR HGB CONC 31.8 g/dl (33.0-37.0); PLATELET COUNT AUTOMATED 215 10*3/uL (130-400); RED BLOOD COUNT 3.46 10*6/uL (4.10-5.10); RED CELL DISTRI WIDTH 16.2 % (0-14.5); WHITE BLOOD COUNT 7.5 10*3/uL (4.8-10.8)
[2020-08-24 06:56] LABS: BURR CELLS FEW; OVALOCYTES FEW; PLATELET SUFFICIENCY NORMAL (NORMAL); POLYCHROMASIA SLIGHT; TOTAL CELLS COUNTED 100 #CELLS; TOXIC GRANULATION SLIGHT
[2020-08-24 16:04] LABS: HEMATOCRIT 33.2 % (37.0-47.0); MEAN CELL VOLUME 93.5 fl (81.0-99.0); MEAN CORPUSCULAR HGB 28.7 pg (27.0-31.0); MEAN CORPUSCULAR HGB CONC 30.7 g/dl (33.0-37.0); MEAN PLATELET VOLUME 10.2 fl (9.6-12.3); NUCLEATED RED BLOOD CELL 0.3 % (0.0-0.0); PLATELET COUNT AUTOMATED 205 10*3/uL (130-400); RED BLOOD COUNT 3.55 10*6/uL (4.10-5.10); RED CELL DISTRI WIDTH 16.5 % (0-14.5); WHITE BLOOD COUNT 7.3 10*3/uL (4.8-10.8)
[2020-08-24 16:36] LABS: BURR CELLS FEW; PLATELET SUFFICIENCY NORMAL (NORMAL); TOTAL CELLS COUNTED 100 #CELLS
[2020-08-24 21:54] LABS: HEMATOCRIT 33.2 % (37.0-47.0); MEAN CELL VOLUME 92.7 fl (81.0-99.0); MEAN CORPUSCULAR HGB 29.3 pg (27.0-31.0); MEAN CORPUSCULAR HGB CONC 31.6 g/dl (33.0-37.0); NUCLEATED RED BLOOD CELL 0.2 % (0.0-0.0); PLATELET COUNT AUTOMATED 203 10*3/uL (130-400); RED BLOOD COUNT 3.58 10*6/uL (4.10-5.10); RED CELL DISTRI WIDTH 16.5 % (0-14.5); WHITE BLOOD COUNT 8.2 10*3/uL (4.8-10.8)
[2020-08-24 22:11] LABS: PLATELET SUFFICIENCY NORMAL (NORMAL); TOTAL CELLS COUNTED 100 #CELLS
[2020-08-24 22:12] LABS: MICROCYTOSIS SLIGHT
[2020-08-25] VITALS: BP 145/71
[2020-08-25 06:13] LABS: HEMATOCRIT 31.6 % (37.0-47.0); MEAN CELL VOLUME 92.9 fl (81.0-99.0); MEAN CORPUSCULAR HGB 28.8 pg (27.0-31.0); MEAN PLATELET VOLUME 10.1 fl (9.6-12.3); PLATELET COUNT AUTOMATED 197 10*3/uL (130-400); RED CELL DISTRI WIDTH 16.7 % (0-14.5)
[2020-08-25 06:59] LABS: TOTAL CELLS COUNTED 100 #CELLS
[2020-08-25 07:03] LABS: BURR CELLS FEW; PLATELET SUFFICIENCY NORMAL (NORMAL)
[2020-08-25 07:04] LABS: OVALOCYTES FEW
[2020-08-25 08:00] VITALS: BP 129/66
[2020-08-25 11:45] VITALS: BP 130/70
[2020-08-25 16:00] VITALS: BP 127/60
[2020-08-25 20:00] VITALS: BP 123/75
[2020-08-26] VITALS: BP 138/80
[2020-08-26 06:11] LABS: BUN 15 mg/dl (7-24); CHLORIDE 113 mmol/L (98-107); CREATININE 0.81 mg/dL (0.55-1.02); POTASSIUM 3.7 mmol/L (3.5-5.1); SODIUM 148 mmol/L (136-145)
[2020-08-26 06:29] LABS: HEMATOCRIT 30.8 % (37.0-47.0); MEAN CELL VOLUME 92.2 fl (81.0-99.0); MEAN CORPUSCULAR HGB 28.7 pg (27.0-31.0); MEAN CORPUSCULAR HGB CONC 31.2 g/dl (33.0-37.0); MEAN PLATELET VOLUME 10.3 fl (9.6-12.3); NUCLEATED RED BLOOD CELL 0.2 % (0.0-0.0); PLATELET COUNT AUTOMATED 188 10*3/uL (130-400); RED BLOOD COUNT 3.34 10*6/uL (4.10-5.10); RED CELL DISTRI WIDTH 16.8 % (0-14.5); WHITE BLOOD COUNT 11.1 10*3/uL (4.8-10.8)
[2020-08-26 07:02] LABS: PLATELET SUFFICIENCY NORMAL (NORMAL); TOTAL CELLS COUNTED 100 #CELLS
[2020-08-26 08:00] VITALS: BP 128/68
[2020-08-26 10:00] LABS: MEAN CORPUSCULAR HGB 28.8 pg (27.0-31.0); MEAN CORPUSCULAR HGB CONC 31.3 g/dl (33.0-37.0); MEAN PLATELET VOLUME 10.3 fl (9.6-12.3); NUCLEATED RED BLOOD CELL 0.3 % (0.0-0.0); PLATELET COUNT AUTOMATED 227 10*3/uL (130-400); RED BLOOD COUNT 3.26 10*6/uL (4.10-5.10); RED CELL DISTRI WIDTH 17.1 % (0-14.5)
[2020-08-26 10:25] LABS: TOTAL CELLS COUNTED 100 #CELLS
[2020-08-26 10:26] LABS: BURR CELLS FEW; PLATELET SUFFICIENCY NORMAL (NORMAL)
[2020-08-26 12:00] VITALS: BP 106/59
== END 2020-08-26 16:16 | disposition hospice, inpatient (51) | DRG 871 ==
LOC: ED 16:19 → 4E 18:51 → EDHOLD 18:51 → 5E 18:51 → 4E 08-21 09:36
PROVIDERS: Emergency Medicine; Internal Medicine; Internal Medicine Gastroenterology; ADMIT Internal Medicine; ATTEND Internal Medicine
PROC: 02HV33Z Insertion of Infusion Device into Superior Vena Cava, Percutaneous Approach (ICD-10-PCS; principal; 2020-08-18)
PROC: XW033E5 Introduction of Remdesivir Anti-infective into Peripheral Vein, Percutaneous Approach, New Technology Group 5 (ICD-10-PCS; 2020-08-21)
PROC: 30233N1 Transfusion of Nonautologous Red Blood Cells into Peripheral Vein, Percutaneous Approach (ICD-10-PCS; 2020-08-21)
PROC: 0DJD8ZZ Inspection of Lower Intestinal Tract, Via Natural or Artificial Opening Endoscopic (ICD-10-PCS; 2020-08-24)
DX: A41.9 Sepsis, unspecified organism (principal); U07.1 COVID-19; E43 Unspecified severe protein-calorie malnutrition; K57.31 Diverticulosis of large intestine without perforation or abscess with bleeding; J91.0 Malignant pleural effusion; K51.919 Ulcerative colitis, unspecified with unspecified complications; D84.9 Immunodeficiency, unspecified; C45.7 Mesothelioma of other sites; I48.0 Paroxysmal atrial fibrillation; I10 Essential (primary) hypertension; E86.0 Dehydration; R65.20 Severe sepsis without septic shock; N39.3 Stress incontinence (female) (male); K52.9 Noninfective gastroenteritis and colitis, unspecified; R91.8 Other nonspecific abnormal finding of lung field; I95.9 Hypotension, unspecified; R29.6 Repeated falls; E88.09 Other disorders of plasma-protein metabolism, not elsewhere classified; F43.23 Adjustment disorder with mixed anxiety and depressed mood; G47.00 Insomnia, unspecified; F32.9 Major depressive disorder, single episode, unspecified; D64.89 Other specified anemias; K64.9 Unspecified hemorrhoids; Z88.1 Allergy status to other antibiotic agents; Z88.2 Allergy status to sulfonamides; Z88.8 Allergy status to other drugs, medicaments and biological substances; Z98.49 Cataract extraction status, unspecified eye; Z90.710 Acquired absence of both cervix and uterus; Z83.79 Family history of other diseases of the digestive system; Z68.29 Body mass index [BMI] 29.0-29.9, adult

== ENCOUNTER 2020-08-26 16:19 | Inpatient (IN) | payer OTHER ==
[~2020-08-26] VITALS: Ht 149.9 cm; Wt 62.6 kg
[2020-08-26 16:00] VITALS: BP 119/60
[2020-08-26 20:00] VITALS: BP 105/70
[2020-08-27] VITALS: BP 103/77
[2020-08-27 08:00] VITALS: BP 137/73
[2020-08-27 16:00] VITALS: BP 118/71
[2020-08-27 20:00] VITALS: BP 111/77
[2020-08-28] VITALS: BP 113/72
[2020-08-28 08:00] VITALS: BP 102/51
[2020-08-28 12:00] VITALS: BP 103/63
[2020-08-28] MEDS ORDERED: METRONIDAZOLE500 M1 PO (15:18)
[2020-08-28 16:00] VITALS: BP 90/42
[2020-08-28 20:00] VITALS: BP 110/55
== END 2020-08-28 22:12 | DRG 385 ==
LOC: 4E 16:19
PROVIDERS: ADMIT Internal Medicine; ATTEND Internal Medicine
DX: K50.90 Crohn's disease, unspecified, without complications (principal); U07.1 COVID-19; D84.9 Immunodeficiency, unspecified; E46 Unspecified protein-calorie malnutrition; K52.9 Noninfective gastroenteritis and colitis, unspecified; C45.7 Mesothelioma of other sites; K57.90 Diverticulosis of intestine, part unspecified, without perforation or abscess without bleeding; I48.0 Paroxysmal atrial fibrillation; F43.23 Adjustment disorder with mixed anxiety and depressed mood; F32.9 Major depressive disorder, single episode, unspecified; G47.00 Insomnia, unspecified; R29.6 Repeated falls; I10 Essential (primary) hypertension; D64.9 Anemia, unspecified; Z68.29 Body mass index [BMI] 29.0-29.9, adult; Z98.49 Cataract extraction status, unspecified eye; Z88.1 Allergy status to other antibiotic agents; Z98.890 Other specified postprocedural states